=== PATIENT | female | born 1965 | race Caucasian/White ===

== ENCOUNTER 2019-02-10 16:54 | Emergency (ER) | payer SELFPAY ==
[~2019-02-10] VITALS: Ht 162.6 cm; Wt 103.0 kg
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
[2019-02-10] MEDS ORDERED: MUPI1OIN6 TP (17:28)
[2019-02-10] MEDS: TETANUS,DIPTH,PERTUSS P/F (BOOSTRIX) 0.5 ML VIAL IM ONE (17:40)
[2019-02-10] MEDS: MUPIROCIN 2% OINT 22 GM (BACTROBAN) TUBE ONE (17:41)
[2019-02-10] MEDS: RX-MUPIROCIN (BACTROBAN) 2% OINT 22 GM TUBE TOP STA (17:41)
[2019-02-10 17:55] VITALS: BP 115/62
== END 2019-02-10 17:55 | disposition home or self-care (01) ==
LOC: ER 16:58
DX: S61.219A Laceration without foreign body of unspecified finger without damage to nail, initial encounter (principal); S01.21XA Laceration without foreign body of nose, initial encounter; S00.91XA Abrasion of unspecified part of head, initial encounter; F17.200 Nicotine dependence, unspecified, uncomplicated; R40.2142 Coma scale, eyes open, spontaneous, at arrival to emergency department; R40.2252 Coma scale, best verbal response, oriented, at arrival to emergency department; R40.2362 Coma scale, best motor response, obeys commands, at arrival to emergency department; Z23 Encounter for immunization; V50.5XXA Driver of pick-up truck or van injured in collision with pedestrian or animal in traffic accident, initial encounter; Y92.411 Interstate highway as the place of occurrence of the external cause
CPT/HCPCS: 90471; 90715; 99284